=== PATIENT | male | born 1975 | race American Indian/Alaskan Native ===

== ENCOUNTER 2018-11-13 15:02 | Emergency (ER) | payer OTHER ==
[2018-11-13] MEDS ORDERED: XYLOCAINE 1% MPF 5 mL ONE (15:35)
--- NOTE | 2018-11-13 15:36 | Emergency Department Report ---
ED Upper Extremity Inj HPI - General Chief Complaint: Extremity Problem,Nontraumatic Stated Complaint: MIDDLE FINGER SWOLLEN/ARM PAIN Time Seen by Provider: 11/13/18 15:22 Source: patient Mode of arrival: Ambulatory Limitations: No Limitations - History of Present Illness Initial Comments: This is a 33-year-old -Indian male presents with swelling and pain to the third finger for one week. 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 He is now reporting swelling, numbness, and decreased range of motion to distal third phalanx. Patient reports pain is 10 out of 10 on pain scale and worse with touch. There is a throbbing constant sensation. Patient states pain is improve d with immobility. He reports pain is worse upon awakening. He is currently not taking anything for symptom relief. He denies paresthesias, weaknesses, fever, or drainage. MD Complaint: Injury to:: right, finger Onset/Timin -: week(s) Other Extremity Injury: Fingers: Right (third distal) Other Injuries: none Handedness: right Severity scale (0 -10): 10 Improves With: immobilization Worsens With: movement of extremity Context: direct blow Associated Symptoms: numbness. denies: weakness, neck pain, suspects foreign body, nausea/vomiting, heard/felt popping sensat Treatments Prior to Arrival: NSAIDS - Related Data Allergies Allergy/AdvReac Type Severity Reaction Status Date / Time aspirin Allergy Hives Verified 11/13/18 15:08 ED Review of Systems ROS: Stated complaint: MIDDLE FINGER SWOLLEN/ARM PAIN Other details as noted in HPI Constitutional: denies: chills, fever Respiratory: denies: cough, shortness of breath, wheezing Cardiovascular: denies: chest pain, palpitations Gastrointestinal: denies: abdominal pain, nausea, diarrhea Musculoskeletal: joint swelling (third distal phalanx), arthralgia (third distal phalanx). denies: back pain Neurological: denies: headache, weakness, paresthesias Psychiatric: denies: anxiety, depression ED Past Medical Hx - Past Medical History Previous Medical History?: No - Surgical History Past Surgical History?: No - Social History Smoking Status: Current Every Day Smoker Substance Use Type: Alcohol ED Physical Exam - General Limitations: No Limitations General appearance: alert, in no apparent distress - Respiratory Respiratory exam: Present: normal lung sounds bilaterally. Absent: respiratory distress - Cardiovascular Cardiovascular Exam: Present: regular rate, normal rhythm. Absent: systolic murmur, diastolic murmur, rubs, gallop - GI/Abdominal GI/Abdominal exam: Present: soft, normal bowel sounds - Neurological Exam Neurological exam: Present: alert, oriented X3 - Psychiatric Psychiatric exam: Present: normal affect, normal mood - Skin Skin exam: Present: warm, dry, intact, normal color, other (dark brown induration under nail, nail and nail fold intact, moderate swelling from tip of finger to DIP with limited range of motion secondary pain, tender). Absent: r [place] ED Course Vital Signs 11/13/18 11/13/18 15:05 15:45 Temperature 97.6 F Pulse Rate 75 Respiratory 18 16 Rate Blood Pressure 114/71 O2 Sat by Pulse 97 Oximetry ED Medical Decision Making - Lab Data Result diagrams: 11/13/18 18:36 11/13/18 18:20 Lab Results 11/13/18 11/13/18 11/13/18 Range/Units 18:20 18:20 18:20 WBC (4.5-11.0) K/mm3 RBC (3.65-5.03) M/mm3 Hgb (11.8-15.2) gm/dl Hct (35.5-45.6) % MCV (84-94) fl MCH (28-32) pg MCHC (32-34) % RDW (13.2-15.2) % Plt Count (140-440) K/mm3 ESR 12 (0-20) mm/Hr Sodium 138 (137-145) mmol/L Potassium 3.8 (3.6-5.0) mmol/L Chloride 101.8 (98-107) mmol/L Carbon Dioxide 28 (22-30) mmol/L Anion Gap 12 mmol/L BUN 11 (9-20) mg/dL Creatinine 0.8 (0.8-1.5) mg/dL Estimated GFR > 60 ml/min BUN/Creatinine Ratio 14 % Glucose 102 H (75-100) mg/dL Lactic Acid 0.80 (0.7-2.0) mmol/L Calcium 9.2 (8.4-10.2) mg/dL Total Bilirubin 0.40 (0.1-1.2) mg/dL AST 13 (5-40) units/L ALT < 5 L (7-56) units/L Alkaline Phosphatase 68 (35-129) units/L Total Protein 7.6 (6.3-8.2) g/dL Albumin 3.9 (3.9-5) g/dL Albumin/Globulin Ratio 1.1 % 11/13/18 Range/Units 18:36 WBC 9.3 (4.5-11.0) K/mm3 RBC 4.59 (3.65-5.03) M/mm3 Hgb 12.8 (11.8-15.2) gm/dl Hct 39.3 (35.5-45.6) % MCV 86 (84-94) fl MCH 28 (28-32) pg MCHC 33 (32-34) % RDW 14.6 (13.2-15.2) % Plt Count 200 (140-440) K/mm3 ESR (0-20) mm/Hr Sodium (137-145) mmol/L Potassium (3.6-5.0) mmol/L Chloride (98-107) mmol/L Carbon Dioxide (22-30) mmol/L Anion Gap mmol/L BUN (9-20) mg/dL Creatinine (0.8-1.5) mg/dL Estimated GFR ml/min BUN/Creatinine Ratio % Glucose (75-100) mg/dL Lactic Acid (0.7-2.0) mmol/L Calcium (8.4-10.2) mg/dL Total Bilirubin (0.1-1.2) mg/dL AST (5-40) units/L ALT (7-56) units/L Alkaline Phosphatase (35-129) units/L Total Protein (6.3-8.2) g/dL Albumin (3.9-5) g/dL Albumin/Globulin Ratio % - Radiology Data Radiology results: report reviewed EXAM: XR FINGER(S) 2+V RT HISTORY: swelling, pain, decreased ROM in right 3rd digit TECHNIQUE: 3 views of the right middle finger PRIORS: None. FINDINGS: Middle finger middle and proximal phalanges within normal limits. There is nonspecific bone rarefaction and suggestion of cortical erosive change in the mid and distal aspect of the distal pha lanx, to include the tuft. This predominantly involves the volar aspect. There appears to be adjacent soft tissue swelling. These findings raise suspicion of inflammation and/or infection, possibly osteomyelitis. No evidence of acute fracture or dislocation. IMPRESSION: Nonspecific osseous erosive change and bone rarefaction in distal phalanx. Consider inflammation or infection possibly from osteomyelitis. Differential includes acro-osteolysis from other possibilities, in the appropriate clinical setting - Medical Decision Making Patient was examined by me. Vitals are normal and patient is in no acute distress. Obtained x-ray of the right fingers. X-ray dictated by radiologist report reviewed by myself. Nonspecific osseous erosive change and bone rarefaction in distal phalanx. Cons ider inflammation or infection possibly from osteomyelitis. Differential includes acro-osteolysis fr om other possibilities, in the appropriate clinical setting. Consulted attending Dr. Delgadillo. Consults a [facility]. Spoke with Dr. Mcneil agreed to take the patient by transport. Ordered Sed rate and CRP which are pending. Patient is awaiting transport from [facility]. Critical care attestation.: If time is entered above; I have spent that time in minutes in the direct care of this critically ill patient, excluding procedure time. ED Disposition Clinical Impression: Finger osteomyelitis, right, Pain of finger of right hand, Swelling of right middle finger Disposition: [id number]/TX-[id number] ANOTHER TYPE HLTHCARE Is pt being admited?: No Does the pt Need Aspirin: No Instructions: Osteomyelitis (ED) Referrals: ISELA PARSONS [Other] - 3-5 Days Forms: Work/School Release Form(ED) Time of Disposition: 19:25
[2018-11-13] MEDS ORDERED: NORCO 5/325 PO ONE (15:42)
[2018-11-13] MEDS ORDERED: XYLOCAINE 1% MPF 5 mL INFILTRATI ONE (15:53)
--- NOTE | 2018-11-13 18:00 | XRay Report ---
FINAL REPORT EXAM: XR FINGER(S) 2+V RT HISTORY: swelling, pain, decreased ROM in right 3rd digit TECHNIQUE: 3 views of the right middle finger PRIORS: None. FINDINGS: Middle finger middle and proximal phalanges within normal limits. There is nonspecific bone rarefacti on and suggestion of cortical erosive change in the mid and distal aspect of the distal phalanx, to i nclude the tuft. This predominantly involves the volar aspect. There appears to be adjacent soft tiss ue swelling. These findings raise suspicion of inflammation and/or infection, possibly osteomyelitis. No evidence of acute fracture or dislocation. IMPRESSION: Nonspecific osseous erosive change and bone rarefaction in distal phalanx. Consider inflammation or i nfection possibly from osteomyelitis. Differential includes acro-osteolysis from other possibilities, in the appropriate clinical setting
[2018-11-13 18:41] LABS: Hematocrit 39.3 % (35.5-45.6); Hemoglobin 12.8 gm/dl (11.8-15.2); Mean Corpuscular HGB Conc 33 % (32-34); Mean Corpuscular Volume 86 fl (84-94); Platelet Count 200 K/mm3 (140-440); Red Blood Count 4.59 M/mm3 (3.65-5.03); Red Cell Distribution Width 14.6 % (13.2-15.2)
[2018-11-13 18:53] LABS: Albumin 3.9 g/dL (3.9-5); BUN/Creatinine Ratio 14; Blood Urea Nitrogen 11 mg/dL (9-20); Calcium 9.2 mg/dL (8.4-10.2); Hemolysis Index 9
[2018-11-13 19:23] LABS: Alanine Aminotransferase < 5 units/L (7-56)
[2018-11-13 19:38] LABS: Band Neutrophils # (Manual) 0.1 K/mm3; Basophils % (Manual) 0 % (0.0-1.8); Eosinophils % (Manual) 0 % (0.0-4.3); Total Cells Counted 100
[2018-11-13 19:40] LABS: Ovalocytes 2+; Platelet Estimate Consistent w Auto; Poikilocytosis 1+
[2018-11-15 12:22] VITALS: BP 122/71
== END 2018-11-13 20:06 | disposition other institution (70) ==
LOC: ED 15:02
DX: M86.8X4 Other osteomyelitis, hand (principal); F17.200 Nicotine dependence, unspecified, uncomplicated; Z88.6 Allergy status to analgesic agent
CPT/HCPCS: 36415; 80053; 82140; 85007; 85025; 85652; 86140